=== PATIENT | female | born 1990 | race Caucasian/White ===

== ENCOUNTER 2021-08-04 10:56 | Emergency (ER) | payer OTHER ==
[~2021-08-04] VITALS: Ht 160 cm; Wt 70.3 kg
[~2021-08-04 10:56] MED LIST: VICODIN 5-5001 EACH PO
[2021-08-04] MEDS ORDERED: BIRTH CONTROL (11:18)
[2021-08-04] MEDS ORDERED: ZANAFLEX4 MG PO (12:17)
[2021-08-04] MEDS ORDERED: ZOFRAN ODT4 MG PO (12:17)
[2021-08-04 12:40] VITALS: BP 119/81
== END 2021-08-04 12:41 | disposition home or self-care (01) ==
LOC: M.ERS 10:56
DX: S16.1XXA Strain of muscle, fascia and tendon at neck level, initial encounter (principal); S09.90XA Unspecified injury of head, initial encounter; V89.2XXA Person injured in unspecified motor-vehicle accident, traffic, initial encounter; Y93.89 Activity, other specified; Y92.89 Other specified places as the place of occurrence of the external cause; Y99.8 Other external cause status